=== PATIENT | male | born 1960 | race Caucasian/White ===

== ENCOUNTER 2020-12-17 15:42 | Emergency (ER) | payer BC, OTHER ==
[2020-12-17 16:11] VITALS: TEMP 97.6; BMI 26.7
[2020-12-17 17:29] LABS: BASO % 0.5 % (0-2.0); EOS % 0.6 % (0-4.5); HEMATOCRIT 38.7 % (35.4-49); HEMOGLOBIN 13.3 GM/dL (11.7-16.9); LYMPH % 28.2 % (8-40); MCHC 34.3 g/dl (32.0-35.9); MEAN CELL VOLUME 96.2 fl (80-96); MEAN PLT VOLUME 7.3 fl (7.5-11.1); MONO % 7.8 % (3.8-10.2); NEUT % 62.9 % (42.8-82.8); PLATELET COUNT 208 10^3/uL (134-434); RBC 4.02 M/mm3 (4.00-5.60); RDW 13.1 % (11.9-15.9); WHITE BLOOD COUNT 6.5 K/mm3 (4.0-10.0)
[2020-12-17 17:35] LABS: INR 0.95 (0.83-1.09); PROTHROMBIN TIME (PATIENT) 11.7 SEC (9.7-13.0)
[2020-12-17 17:38] LABS: ACTIVATED PTT 29.3 SECONDS (25.2-36.5)
[2020-12-17 17:48] LABS: CHLORIDE 105 mmol/L (98-107); SODIUM 138 mmol/L (136-145)
[2020-12-17 17:50] LABS: ANION GAP 5 MMOL/L (8-16); BLOOD UREA NITROGEN 19.3 mg/dL (7-18); CALCIUM 8.5 mg/dL (8.5-10.1); CO2 28 mmol/L (21-32); GLUCOSE,RANDOM 119 mg/dL (74-106); MAGNESIUM 1.8 mg/dL (1.8-2.4)
[2020-12-17 17:51] LABS: ALBUMIN 3.8 g/dl (3.4-5.0)
[2020-12-17 17:53] LABS: SGPT/ALT 27 U/L (13-61)
[2020-12-17 17:54] LABS: CREATININE 1.1 mg/dL (0.55-1.3); SGOT/AST 22 U/L (15-37)
[2020-12-17 17:55] LABS: BILIRUBIN,TOTAL 0.5 mg/dL (0.2-1); TOT PROT 7.3 g/dl (6.4-8.2)
[2020-12-17 17:56] LABS: ALK PHOS 67 U/L (45-117)
[2020-12-17 18:52] VITALS: BP 124/80; PULSE 72
== END 2020-12-17 18:51 | disposition home or self-care (01) ==
LOC: JER 15:42
DX: R07.9 Chest pain, unspecified (principal)
CPT/HCPCS: 36415; 71046-TC-FY; 80053; 82550; 83735; 84484; 85025; 85610; 85730; 93005; 93010; 99285-25; C9803; U0003; U0005

== ENCOUNTER 2022-02-05 19:41 | Emergency (ER) | payer BC, OTHER ==
[2022-02-05 20:15] VITALS: BMI 23.6
[2022-02-05 22:21] LABS: EPI CELLS 3 /uL (0-25.1); HYALINE CASTS 0 /uL (0-3.1); PH,URINE 5.5 (5.0-8.0); URINE APPEARANCE CLOUDY; URINE BACTERIA 8 /uL (0-1359); URINE BILIRUBIN NEGATIVE (NEGATIVE); URINE COLOR ORANGE; URINE GLUCOSE (UA) NEGATIVE (NEGATIVE); URINE KETONE NEGATIVE (NEGATIVE); URINE LEUK ESTERASE TRACE (NEGATIVE); URINE NITRITE NEGATIVE (NEGATIVE); URINE PROTEIN 1+ (NEGATIVE); URINE RBC 10845 /uL (0-23.9); URINE WBC 30 /uL (0-25.8)
[2022-02-05 22:24] LABS: BASO % 0.3 % (0-2.0); EOS % 0.6 % (0-4.5); HEMATOCRIT 42.3 % (35.4-49); HEMOGLOBIN 14.2 GM/dL (11.7-16.9); LYMPH % 27.5 % (8-40); MCH 32.6 pg (25.7-33.7); MCHC 33.6 g/dl (32.0-35.9); MEAN CELL VOLUME 96.8 fl (80-96); MEAN PLT VOLUME 7.4 fl (7.5-11.1); MONO % 9.4 % (3.8-10.2); NEUT % 62.2 % (42.8-82.8); PLATELET COUNT 231 10^3/uL (134-434); RBC 4.36 M/mm3 (4.00-5.60); RDW 12.8 % (11.9-15.9); WHITE BLOOD COUNT 6.6 K/mm3 (4.0-10.0)
[2022-02-05 22:48] LABS: BLOOD UREA NITROGEN 23.3 mg/dL (7-18); CREATININE 1.3 mg/dL (0.55-1.3)
[2022-02-05 22:50] LABS: BILIRUBIN,TOTAL 0.7 mg/dL (0.2-1)
[2022-02-05 22:53] VITALS: RESP 16; TEMP 97.8
[2022-02-05 22:53] LABS: TOT PROT 7.6 g/dl (6.4-8.2)
[2022-02-05 23:22] VITALS: BP 150/97; PULSE 57
== END 2022-02-06 00:04 | disposition home or self-care (01) ==
LOC: JER 19:41
DX: R31.9 Hematuria, unspecified (principal)
CPT/HCPCS: 36415; 74176-TC; 80053; 81003; 85025; 87086; 99284-25

== ENCOUNTER 2023-11-19 11:43 | Emergency (ER) | payer BC, OTHER ==
[2023-11-19 12:11] VITALS: BP 160/82; PULSE 67; RESP 17; TEMP 97.5; BMI 24.3
[2023-11-19 13:15] LABS: BASO % 0.4 % (0-2.0); EOS % 0.2 % (0-4.5); HEMATOCRIT 43.3 % (35.4-49); HEMOGLOBIN 14.4 GM/dL (11.7-16.9); LYMPH % 23.3 % (8-40); MCH 31.9 pg (25.7-33.7); MCHC 33.3 g/dl (32.0-35.9); MEAN CELL VOLUME 95.8 fl (80-96); MEAN PLT VOLUME 6.9 fl (7.5-11.1); MONO % 7.6 % (3.8-10.2); NEUT % 68.5 % (42.8-82.8); PLATELET COUNT 243 10^3/uL (134-434); RBC 4.52 M/mm3 (4.00-5.60); RDW 13.1 % (11.9-15.9); WHITE BLOOD COUNT 7.7 K/mm3 (4.0-10.0)
[2023-11-19 13:43] LABS: POTASSIUM 4.7 mmol/L (3.5-5.1)
[2023-11-19 13:44] LABS: CALCIUM 9.2 mg/dL (8.5-10.1)
[2023-11-19 13:45] LABS: BLOOD UREA NITROGEN 24.4 mg/dL (7-18)
[2023-11-19 13:48] LABS: CREATININE 1.2 mg/dL (0.55-1.3)
[2023-11-19 13:53] LABS: URIC ACID 6.2 mg/dL (2.6-7.2)
[2023-11-19 14:33] LABS: HIV INTERPRETATION NEGATIVE (NEGATIVE)
== END 2023-11-19 14:55 | disposition home or self-care (01) ==
LOC: JER 11:43
DX: M77.8 Other enthesopathies, not elsewhere classified (principal); M79.672 Pain in left foot; M25.475 Effusion, left foot; Y93.01 Activity, walking, marching and hiking
CPT/HCPCS: 36415; 73630-TC-LT; 80048; 84550; 85025; 87389; 99284-25